=== PATIENT | female | born 1960 | race Caucasian/White ===

== ENCOUNTER 2018-10-07 08:45 | Day surgery (SDC) | payer BC ==
[2018-10-04 11:41] LABS: BASOPHIL % 0.6 % (0-2); PLATELET COUNT 172 x10^3mcL (130-400); RED CELL DISTRIBUTION WIDTH 14.3 % (11.5-14.5)
[2018-10-04 12:10] LABS: ALKALINE PHOSPHATASE 77 U/L (46-116); ALT/SGPT 26 U/L (14-59); AST/SGOT 27 U/L (15-37); BILIRUBIN TOTAL 0.4 mg/dL (0.20-1.00); CALCIUM 8.5 mg/dL (8.5-10.1); CARBON DIOXIDE 27.7 mmol/L (21-32); CHLORIDE SERUM 105 mmol/L (98-107); CREATININE SERUM 0.8 mg/dL (0.6-1.0); GFR1 > 60 mL/min; GLUCOSE SERUM 74 mg/dL (74-106); POTASSIUM SERUM 4.2 mmol/L (3.5-5.1); SODIUM SERUM 142 mmol/L (136-145); TOTAL PROTEIN, SERUM 7.7 g/dL (6.4-8.2)
[2018-10-04 12:18] LABS: ALBUMIN 3.1 g/dL (3.4-5.0)
[~2018-10-07] VITALS: Ht 160 cm; Wt 129.7 kg
[2018-10-07 09:07] VITALS: BP 148/69
[2018-10-07 16:54] VITALS: BP 150/78
== END 2018-10-07 16:45 | disposition home or self-care (01) ==
LOC: DS 08:45 → OR 12:00 → DS 12:00 → RD 12:00 → DS 16:45
PROVIDERS: Surgery
DX: N60.21 Fibroadenosis of right breast (principal); L30.8 Other specified dermatitis; N62 Hypertrophy of breast; E11.9 Type 2 diabetes mellitus without complications; I10 Essential (primary) hypertension; E66.8 Other obesity; Z79.82 Long term (current) use of aspirin; Z79.899 Other long term (current) drug therapy; Z87.891 Personal history of nicotine dependence; Z88.5 Allergy status to narcotic agent; Z90.49 Acquired absence of other specified parts of digestive tract; Z98.890 Other specified postprocedural states; Z68.43 Body mass index [BMI] 50.0-59.9, adult; Z87.59 Personal history of other complications of pregnancy, childbirth and the puerperium; Z90.710 Acquired absence of both cervix and uterus; Z79.84 Long term (current) use of oral hypoglycemic drugs
CPT/HCPCS: J0690; J2001; J2405; J2704; J3010; J3490; J7120

== ENCOUNTER 2018-10-18 12:38 | Emergency (ER) | payer SELFPAY ==
[~2018-10-18] VITALS: Ht 160 cm; Wt 133.4 kg
[2018-10-18 12:51] VITALS: Ht 160 cm; Wt 133.4 kg
[2018-10-18 14:39] VITALS: BP 152/64
== END 2018-10-18 14:39 | disposition home or self-care (01) ==
LOC: ED 12:38
DX: N61.0 Mastitis without abscess (principal)